=== PATIENT | female | born 1995 | race Caucasian/White ===

== ENCOUNTER 2017-02-18 06:00 | Inpatient (IN) | payer OTHER ==
[~2017-02-18] VITALS: Ht 167.6 cm; Wt 55.8 kg
--- NOTE | ~2017-02-18 | PN ---
Unit #: [id number] #: [id number] Patient: FIOR PEPE [id number] [facility] [address] [place] [address] [id number] I MR#: [id number] NAME: FIOR PEPE ROOM: P185 Age: 21 Sex: F Admission Date: 02/18/2017 : 1995 Attending Physician: Primitivo Grayson M.D. Admitting Physician: Primitivo Grayson M.D. Primary Care Physician: Generic Doctor Not In System [facility] PROGRESS NOTES DATE 02/21/2017 DISCUSSION Fior is having a "panic attack" on the unit with extreme anxiety, some shortness of breath and feeling like she "cannot take it anymore". She denied further suicidal ideation but she is quite hysterical on the unit and is receiving some mild encouragement in this from her roommate. She is alert and fully oriented with no active psychosis and no suicidal ideation. ASSESSMENT Opiate dependence. PLAN Provide Vistaril p.r.n. for temporary anxiety relief and continue current detox protocol. Dictated by... Mayi Hudson/mk TD: 02/26/2017 02:03 JOB #: [id number] [facility] PROGRESS NOTES Page 1 of 1 X Primitivo Grayson MD PROGRESS NOTE
--- NOTE | ~2017-02-18 | HP ---
Unit #: [id number] #: [id number] Patient: MYSEPTEMBER [id number] [place] [address] [id number] I MR#: [id number] NAME: FIOR PEPE ROOM: P185 Age: 21 Sex: F Admission Date: 02/18/2017 : 1995 Attending Physician: Primitivo Grayson M.D. Admitting Physician: Primitivo Grayson M.D. Primary Care Physician: Generic Doctor Not In System HISTORY AND PHYSICAL HISTORY OF PRESENT ILLNESS Fior is a 21 year old admitted to [facility] because of her drug use. She shoots heroin. PAST MEDICAL HISTORY Long history of opioid abuse to include IV heroin. PAST SURGICAL HISTORY x1. ALLERGIES No known drug allergies. SOCIAL HISTORY Smokes less than 1 pack per day. Denies alcohol. Admits to a long history of opioid abuse to include IV heroin. FAMILY HISTORY Medically noncontributory. REVIEW OF SYSTEMS CONSTITUTIONAL: No fever or chills. HEENT: Denies any sore throat, ear pain or runny nose. CARDIOVASCULAR: Denies chest pain, irregular heart rhythm or palpitations. CHEST: Denies shortness of breath or cough. No hemoptysis. GASTROINTESTINAL: Denies nausea, vomiting, diarrhea or chronic constipation. ENDOCRINE: Denies history of increased thirst or urination. No recent significant weight loss or gain. GENITOURINARY: Denies dysuria, frequency, or hematuria. SKIN: Denies any rashes. HEMATOLOGIC: Denies history of increased bleeding or bruising. MUSCULOSKELETAL: Denies any hot, swollen joints. No generalized muscle pain. NEUROLOGIC: Denies problems with vision or speech. No frequent, severe headaches. No numbness, tingling or weakness in any extremities. Denies loss of bladder or bowel control. CURRENT MEDICATIONS 1. Detox protocol. 2. Proventil inhaler p.r.n. PHYSICAL EXAMINATION Unit #: [id number] #: [id number] Patient: FIOR PEPE GENERAL: Alert, well-nourished, in no apparent distress. VITAL SIGNS: Blood pressure 113/78, heart rate 88, respirations 16, temperature 98.6. WEIGHT: 123. HEIGHT: 5 feet 6 inches. SKIN: Warm and dry without rash or lesion. HEENT: Normocephalic. TMs not viewed. Oral and nasal passages clear. Conjunctivae clear. PERRLA. EOMs intact. NECK: Supple without lymphadenopathy or thyromegaly. HEART: Regular rate and rhythm without murmur. LUNGS: Clear. ABDOMEN: Soft, nontender. : Not done. EXTREMITIES: No evidence of cyanosis, clubbing or edema. Moves all without focal deficit. NEUROLOGICAL: Grossly within normal limits. Cranial Nerves: II: Visual eddy are intact. III, IV AND : Extraocular movements are intact. Pupils are equal, round and reactive to light. V: Facial sensation is grossly normal. VII: Facial movements and expression are normal. VIII: Auditory acuity grossly intact. IX, X: Uvula is midline. Phonation is normal. XI: Patient shrugs shoulders and turns head normally. XII: Tongue protrudes in the midline. Sensory and Motor Function: Sensory and motor sensation is grossly normal. Motor: moves all extremities well. Coordination: Gait is normal. Deep Tendon Reflexes: Intact. IMPRESSION Psychiatric admission. RECOMMENDATIONS PSYCHIATRIC: Per psychiatrist. MEDICAL: See no contraindication to participate in facility's activities. MEDICAL PROGNOSIS Good. MEDICAL CONDITION Stable. Dictated by... Barbara Guerra P.A.-C. for Mayi Ross/aravind TD: 02/18/2017 21:18 JOB #: [id number] Unit #: [id number] #: [id number] Patient: HISTORY AND PHYSICAL Page 1 of 1 X Barbara Guerra HISTORY AND PHYSICAL
--- NOTE | ~2017-02-18 | DS ---
Unit #: [id number] #: [id number] Patient: YM [id number] [place] [address] [id number] I MR#: [id number] NAME: FIOR PEPE ROOM: P185 Age: 21 Sex: F Admission Date: 02/18/2017 : 1995 Discharge Date: 02/22/2017 Attending Physician: Primitivo Grayson M.D. Primary Care Physician: Generic Doctor Not In System DISCHARGE SUMMARY REASON FOR ADMISSION Fior is a 21-year-old woman who has been temporally homeless and using heroin on a frequent basis. She was recently incarcerated for missing a court date and was brought here by her mother for opiate detox. She had vague suicidal ideation but contracted for safety. DIAGNOSTIC STUDIES LABORATORY DATA: Beta HCG was negative. Other laboratory studies were normal. HOSPITAL COURSE Patient was admitted and placed on the opiate detox protocol. Her Lexapro and her albuterol inhaler were continued. The patient tolerated detox reasonably well although she had a couple of "panic" like episodes. During the hospitalization and use p.r.n. Vistaril for these. Once her detox was complete, she had no further suicidal ideation, intent, or plan and was discharged in stable condition. DISCHARGE DIAGNOSES AXIS I: Opiate dependence withdrawal uncomplicated, F11.23. History of depression. AXIS II: Diagnosis deferred, some cluster B traits noted. AXIS III: History of asthma. DISCHARGE INSTRUCTIONS Follow up with the intensive outpatient program at this facility and with [facility]. DISCHARGE MEDICATIONS No prescriptions were provided. The patient was continued on Lexapro 10 mg daily for depression and albuterol inhaler 2 puffs every 4 hours as needed for shortness of air from her primary care physician. CONDITION ON DISCHARGE Improved. PROGNOSIS Fair to good. DIET AND ACTIVITY Per primary care doctor. Unit #: [id number] #: [id number] Patient: MYFIOR Dictated by... Mayi Hudson/smita TD: 02/26/2017 07:47 JOB #: [id number] DISCHARGE SUMMARY Page 1 of 1 X Primitivo Grayson MD X DISCHARGE SUMMARY
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
[2017-02-19 10:23] LABS: BASOPHIL# 0.1 X10e3 (0-0.3); BASOPHIL% 1.3 % (0-2.5); DIFF IND NO; EOSINOPHIL# 0.1 X10e3 (0-0.7); HEMATOCRIT 37.3 % (35.0-45.0); HEMOGLOBIN 12.5 gm/dL (12.0-16.0); LYMPHOCYTE# 2.2 X10e3 (1.0-3.5); LYMPHOCYTE% 37.2 % (17.0-45.0); MEAN CELL VOLUME 85.4 FL (83-96); MEAN CORPUSCULAR HEMOGLOBIN 28.6 PG (28-34); MEAN CORPUSCULAR HGB CONC 33.4 g/dL (30-36); MEAN PLATELET VOLUME 7.6 FL (6.5-11.5); MONOCYTE# 0.4 X10e3 (0-1.0); MONOCYTE% 7.1 % (3.0-12.0); NEUTROPHIL# 3.1 X10e3 (1.5-7.1); NEUTROPHIL% 53.4 % (40-75); PLATELET COUNT 442 X10e3 (140-420); RED BLOOD COUNT 4.37 X10e (3.90-5.30); RED CELL DISTRIBUTION WIDTH 16.1 % (11.0-15.5); WHITE BLOOD COUNT 5.8 X10e3 (4.0-10.5)
[2017-02-19 12:17] LABS: ALBUMIN SERUM 3.6 g/dL (3.5-5.0); BILIRUBIN,TOTAL 0.8 mg/dL (0.2-2.0); CALCIUM SERUM 9.3 mg/dL (8.4-10.2); CREATININE SERUM 0.9 mg/dL (0.6-1.4); GLOM FILT RATE Estimated 90.2 mL/min (>60); POTASSIUM 3.9 mmol/L (3.5-5.1)
== END 2017-02-22 13:45 | disposition home or self-care (01) | DRG 897 ==
LOC: P1E 10:06
PROVIDERS: Psychiatry & Neurology Psychiatry
PROC: HZ2ZZZZ Detoxification Services for Substance Abuse Treatment (ICD-10-PCS; principal; 2017-02-18)
DX: F11.20 Opioid dependence, uncomplicated (principal); F17.210 Nicotine dependence, cigarettes, uncomplicated
CPT/HCPCS: 80053; 84703; 85025; 86592